=== PATIENT | female | born 1950 | race Caucasian/White ===

== ENCOUNTER 2019-01-10 12:01 | Emergency (ER) | payer MEDICARE ==
--- NOTE | 2019-01-10 12:41 | ERPHSYRPT ---
- History of Present Illness Time Seen by Provider: 01/10/19 12:31 Source: patient Exam Limitations: no limitations Patient Subjective Stated Complaint: pt reports she was seeeing her pain doctor today when they recorded her blood pressure at 190/100, pt reports she then went to Dr. Singh office and asked his nurse to take her blood pressure, which was found to be similar to the first recording. pt denies any pain but does state shes had a headache for about a week. pt states she does not record her blood pressures at home, states she does have a device but needs to get new batteries for it. Triage Nursing Assessment: pt is aox3, pupils perrl, afebrile, resps easy and non labored, radial pulses strong and equal, cap refill < 3 seconds, pt skin pink warm dry. no edema noted. Physician History: 68-year-old white female with history of migraines, high blood pressure, COPD, diabetes, hypothyroidism, fibromyalgia Patient arrives with complaint of a headache for one week ago she states she was in a pain senior project controls specialist which she sees for her back today was noted to have a high blood pressure she apparently then presented to her family doctor's office and was told to show up to the emergency room to evaluate her blood pressure patient states she's had a headache for a week she states she's had some pain in her posterior neck as well she states she fell a week ago and struck her head. She did not have loss of consciousness. Past medical history includes migraines, high blood pressure, asthma, bronchitis , COPD, diabetes type 2, hypothyroidism, arthritis, fibromyalgia, diverticulosis , GERD past surgical history includes low back surgery, hysterectomy . social history positive for tobacco use denies alcohol or illicit drug use. . Timing/Duration: today Severity: moderate Associated Symptoms: headaches, other (sshe was at elevated blood pressure), No nausea, No vomiting, No abdominal pain, No shortness of breath, No heartburn, No diaphoresis, No cough, No chills, No chest pain, No fever, No loss of appetite, No malaise, No rash, No syncope, No seizure, No weakness Allergies/Adverse Reactions: amoxicillin trihydrate [From Augmentin] Allergy (Verified 01/10/19 12:32) Diarrhea vomitting aspirin Allergy (Verified 01/10/19 12:32) Diarrhea buprenorphine [From Butrans] Allergy (Verified 06/11/19 12:32) Rash blisters levofloxacin [From Levaquin] Allergy (Verified 01/10/19 12:32) Diarrhea rash Penicillins Allergy (Verified 01/10/19 12:32) Rash potassium clavulanate [From Augmentin] Allergy (Verified 01/10/19 12:32) Diarrhea vomitting wool Allergy (Verified 01/10/19 12:32) Rash windex Adverse Reaction (Uncoded 01/10/19 12:32) lump on tongue Home Medications: Estrogens,Conjugated [Premarin] 0.625 mg PO DAILY 11/28/14 [History] Hydrochlorothiazide 50 mg PO DAILY 11/28/14 [History] Hydrocodone Bit/Acetaminophen [[place] 5-325 Tablet] 1 tab PO DAILY 11/28/14 [ History] Levothyroxine Sodium 50 Mcg [Synthroid 50 Mcg] 75 mcg PO DAILY 11/28/14 [ History] Metformin HCl 500 mg [Glucophage 500 MG] 500 mg PO TID 11/28/14 [History] Albuterol Sulfate [Proair Hfa] 8.5 gm IH QID 12/07/15 [History] Loratadine 10 mg PO DAILY 12/07/15 [History] Zolpidem Tartrate [Ambien] 5 mg PO HS 12/07/15 [History] Fluoxetine HCl [Prozac] 40 mg PO DAILY 09/09/17 [History] Glimepiride 4 mg [Amaryl 4 mg] 4 mg PO DAILY 09/09/17 [History] HydrALAzine HCL 25 MG TAB [Apresoline 25 MG TABLET] 25 mg PO BID 09/09/17 [History] Milnacipran HCl [Savella] 100 mg PO BID 09/09/17 [History] Nebivolol HCl [Bystolic] 20 mg PO DAILY 09/09/17 [History] Omeprazole 20 MG [Prilosec 20 mg] 20 mg PO DAILY 09/09/17 [History] Tizanidine HCl [Zanaflex] 2 mg PO HS 09/09/17 [History] Hx Tetanus, Diphtheria Vaccination/Date Given: No Hx Influenza Vaccination/Date Given: No Hx Pneumococcal Vaccination/Date Given: Yes Immunizations Up to Date: Yes - Review of Systems Constitutional: No Fever, No Chills Eyes: No Symptoms Ears, Nose, & Throat: No Symptoms Respiratory: No Cough, No Dyspnea Cardiac: No Chest Pain, No Edema, No Syncope Abdominal/Gastrointestinal: No Abdominal Pain, No Nausea, No Vomiting, No Diarrhea Genitourinary Symptoms: No Dysuria Musculoskeletal: Neck Pain, Injury (fell one week ago) Skin: No Rash Neurological: Headache, No Dizziness, No Focal Weakness, No Gait Changes, No Irritability, No Lethargy, No Paralysis, No Parasthesia, No Seizure, No Sensory Changes, No Speech Changes, No Tics, No Tremors, No Vertigo Psychological: No Symptoms Endocrine: No Symptoms All Other Systems: Reviewed and Negative - Past Medical History Pertinent Past Medical History: Yes Neurological History: Migraines ENT History: Cataracts Cardiac History: Hypertension Respiratory History: Asthma, Bronchitis, COPD, Sleep Apnea Endocrine Medical History: Diabetes Type II, Hypothyroidism Musculoskeletal History: Arthritis, Fibromyalgia GI Medical History: GERD, Hernia History: No Pertinent History Psycho-Social History: Depression Female Reproductive Disorders: No Pertinent History - Past Surgical History Past Surgical History: Yes Neuro Surgical History: Neurological Surgery Cardiac: No Pertinent History Respiratory: No Pertinent History Gastrointestinal: Cholecystectomy Genitourinary: No Pertinent History Musculoskeletal: No Pertinent History Female Surgical History: Hysterectomy Other Surgical History: low back surgery,feet and toes surgeryleft knee surgery, . T&A, 2 sinus surgeries. - Social History Smoking Status: Current every day smoker How long have you smoked: age 19 Exposure to second hand smoke: Yes Drug Use: none Patient Lives Alone: No - Female History Hx Now: No - Nursing Vital Signs Nursing Vital Signs: Initial Vital Signs Temperature 98.7 F 01/10/19 12:18 Pulse Rate 70 01/10/19 12:18 Respiratory Rate 20 01/10/19 12:18 Blood Pressure 190/112 01/10/19 12:18 O2 Sat by Pulse Oximetry 96 01/10/19 12:18 Pain Scale Pain Intensity 0 - Physical Exam General Appearance: mild distress, alert Eye Exam: PERRL/EOMI, eyes nml inspection Ears, Nose, Throat Exam: normal ENT inspection, TMs normal, pharynx normal, moist mucous membranes Neck Exam: normal inspection, non-tender, supple, full range of motion Respiratory Exam: normal breath sounds Cardiovascular Exam: regular rate/rhythm, normal heart sounds, normal peripheral pulses, capillary refill <2 sec Gastrointestinal/Abdomen Exam: soft, normal bowel sounds, No tenderness, No mass Back Exam: normal inspection, normal range of motion, No CVA tenderness, No vertebral tenderness Extremity Exam: normal inspection, normal range of motion, pelvis stable Neurologic Exam: alert, oriented x 3, cooperative, senior digital designer II-XII nml as tested, normal mood/affect, nml cerebellar function, nml station & gait, sensation nml, No motor deficits Skin Exam: normal color, warm, dry, No rash Lymphatic Exam: No adenopathy SpO2 Interpretation: normal (96%) SpO2: 96 - Course Nursing assessment & vital signs reviewed: Yes - CT Exams Cervical Spine CT Interpretation: Discussed w/radiologist (CT C-spine: Impression: 1. Cervical lordotic reversal, positional versus paraspinal spasm.negative acute fractures/subluxation. 2. Multilevel degenerative spondylosis) Head CT Interpretation: Discussed w/radiologist (CT head: Impression nonacute senile brain.) Ordered Tests: Active Orders 24 hr Category Date Time Status EKG-ER Only STAT Care 01/10/19 12:35 Active IV Insertion STAT Care 01/10/19 12:35 Active CERVICAL SPINE WO CONTRAST [CT] Stat Exams 01/10/19 12:36 Completed HEAD WITHOUT CONTRAST [CT] Stat Exams 01/10/19 12:36 Completed CBC W DIFF Stat Lab 01/10/19 12:51 Completed CMP Stat Lab 01/10/19 12:51 Completed Medication Summary Discontinued Medications Generic Name Dose Route Start Last Admin Trade Name Haydenq PRN Reason Stop Dose Admin Hydralazine HCl 10 mg 01/10/19 13:58 01/10/19 14:15 Apresoline 20 Mg/Ml Inj IV 01/10/19 13:59 10 mg STAT ONE Administration Hydralazine HCl Confirm 01/10/19 14:09 Apresoline 20 Mg/Ml Inj Administered 01/10/19 14:10 Dose 20 mg .ROUTE .STK-MED ONE Lab/Rad Data: Laboratory Result Diagrams 01/10/19 12:51 01/10/19 12:51 Laboratory Results 01/10/19 01/10/19 Range/Units 12:51 12:51 WBC 12.2 H (4.0-10.5) K/mm3 RBC 4.66 (4.1-5.4) M/mm3 Hgb 13.9 (12.0-16.0) gm/dl Hct 42.2 (35-47) % MCV 90.6 (78-100) fl MCH 29.8 (26-32) pg MCHC 32.9 (32-36) g/dl RDW 14.5 H (11.5-14.0) % Plt Count 200 (150-450) K/mm3 MPV 10.6 H (6-9.5) fl Gran % 63.0 (36.0-66.0) % Eos # (Auto) 0.22 (0-0.5) Absolute Lymphs (auto) 3.48 (1.0-4.6) Absolute Monos (auto) 0.75 (0.0-1.3) Lymphocytes % 28.5 (24.0-44.0) % Monocytes % 6.1 (0.0-12.0) % Eosinophils % 1.8 (0.00-5.0) % Basophils % 0.6 (0.0-0.4) % Absolute Granulocytes 7.69 H (1.4-6.9) Basophils # 0.07 (0-0.4) Sodium 138 (137-145) mmol/L Potassium 3.9 (3.5-5.1) mmol/L Chloride 101 (98-107) mmol/L Carbon Dioxide 27 (22-30) mmol/L Anion Gap 14.1 (5-15) MEQ/L BUN 15 (7-17) mg/dL Creatinine 0.66 (0.52-1.04) mg/dL Estimated GFR > 60.0 ML/MIN Glucose 176 H (74-106) mg/dL Calcium 9.9 (8.4-10.2) mg/dL Total Bilirubin 0.30 (0.2-1.3) mg/dL AST 57 H (14-36) U/L ALT 35 (0-35) U/L Alkaline Phosphatase 89 (38-126) U/L Serum Total Protein 7.6 (6.3-8.2) g/dL Albumin 3.9 (3.5-5.0) g/dL - Progress Progress: improved Progress Note: 01/10/19 14:38 68-year-old white female with history of migraines, hyper tension, asthma, bronchitis COPD, diabetes type 2, hypothyroidism, arthritis, fibromyalgia, diverticulosis, GERD, chronic back pain She arrives with complaint of a headache for one week after falling and hitting her head she did have some neck pain Patient was noted at her pain control physician's office this morning to have elevated blood pressure she apparently did not have this addressed with the pain senior project controls specialist however she presented to Dr. Singh's office and was recommended to come to the emergency room on arrival the emergency room patient with a blood pressure of 190 over 01/10/19 14:40 112. Patient otherwise what appeared to be stable she did complain of some neck pain and obtain a CT of her head and neck CT of the head is remarkable for nonacute senile brain. CT C-spine is remarkable for cervical lordotic reversal positional versus paraspinal spasm negative acute fractures or subluxation there is also multilevel degenerative spondylosis patient does have a chronic pain stimulator so EKG could not be obtained on this patient patient did have a regular pulse. Blood pressure initially was what it was noted to be in previous techs patient was CBC 12.2 hemoglobin 13.9 hematocrit 42.2 platelets 200. . patient with chemistry sodium 138 potassium 3.9 chloride 101 bicarbonate 27 BUN 15 creatinine 0.66 glucose 176 patient was given a Presalin 10 mg IV she initially went to a blood pressure 185/86 then to 178/75. I've discussed the patient's case with Dr. Armstrong. I recommended that I have the patient return home have her continue her hydroxyzine as prescribed in her by systolic as prescribed at home and to take her [place] as prescribed for pain. He is in agreement with this will go ahead and discharge patient patient appears to be stable. Impression 1 hypertension 2, headache. 3. Head contusion. . . - Departure Departure Disposition: Home Clinical Impression: Hypertension Qualifiers: Hypertension type: unspecified Qualified Code(s): I10 - Essential (primary) hypertension Headache Qualifiers: Headache type: unspecified Headache chronicity pattern: unspecified pattern Intractability: not intractable Qualified Code(s): R51 - Headache Head contusion Qualifiers: Encounter type: initial encounter Contusion of head detail: unspecified part of head Qualified Code(s): S00.93XA - Contusion of unspecified part of head, initial encounter Condition: Fair Critical Care Time: No Referrals: MORENA SINGH MD [Primary Care Provider] - Additional Instructions: Return home, rest. Take your medications especially hydralazine and diastolic as prescribed by your family Dr.. Pearson as prescribed by your pain senior project controls specialist. Followup with your family (contact your family doctor's office and schedule an appointment for the next day or so. Return for acute distress or for severe symptoms or for any problems.
[2019-01-10 12:53] LABS: BASOPHIL % 0.6 % (0.0-0.4); Basophil (Absolute #) 0.07 (0-0.4); Eosinophil % 1.8 % (0.00-5.0); Eosinophil (Absolute #) 0.22 (0-0.5); Granulocyte Absolute (ANC) 7.69 (1.4-6.9); Hematocrit 42.2 % (35-47); Hemoglobin 13.9 gm/dl (12.0-16.0); Lymphocyte (Absolute #) 3.48 (1.0-4.6); Lymphocytes % 28.5 % (24.0-44.0); Mean Cell Volume 90.6 fl (78-100); Mean Corpuscular Hemoglobin 29.8 pg (26-32); Mean Corpuscular Hgb Concent. 32.9 g/dl (32-36); Mean Platelet Volume 10.6 fl (6-9.5); Monocyte (Absolute #) 0.75 (0.0-1.3); Monocytes % 6.1 % (0.0-12.0); Platelet Count 200 K/mm3 (150-450); Red Blood Count 4.66 M/mm3 (4.1-5.4); Red Cell Distribution Width 14.5 % (11.5-14.0); White Blood Count 12.2 K/mm3 (4.0-10.5)
[2019-01-10 13:16] LABS: ALBUMIN 3.9 g/dL (3.5-5.0); ALKALINE PHOSPHATASE 89 U/L (38-126); ANION GAP 14.1 MEQ/L (5-15); BLOOD UREA NITROGEN 15 mg/dL (7-17); CHLORIDE 101 mmol/L (98-107); Calcium 9.9 mg/dL (8.4-10.2); Carbon Dioxide 27 mmol/L (22-30); Creatinine 1 0.66 mg/dL (0.52-1.04); Glucose 176 mg/dL (74-106); Potassium 3.9 mmol/L (3.5-5.1); SGOT/AST 57 U/L (14-36); SGPT/ALT 35 U/L (0-35); SODIUM 138 mmol/L (137-145); Total Protein 7.6 g/dL (6.3-8.2)
--- NOTE | 2019-01-10 13:30 | XRAY ---
Indication: Headache. Right head injury following fall 1 week ago. Multiple contiguous axial images obtained through the head without contrast. Comparison: October 27, 2009. Age-appropriate global atrophy and minimal periventricular degenerative micro-ischemia bilaterally. No acute intracranial hemorrhage, abnormal extra-axial fluid collection, or mass effect. Fourth ventricle is midline without hydrocephalus. Bony calvarium intact. Visualized paranasal sinuses and mastoid air cells are clear. Impression: Nonacute senile brain. CTDI 51.62
--- NOTE | 2019-01-10 13:33 | XRAY ---
Indication: Right neck pain following fall 1 week ago. Multiple contiguous axial images obtained through the cervical spine. Sagittal and coronal reformatted images obtained. Comparison: None. Normal variant nonunited posterior arch of C1. Axial images negative for acute fracture, suspicious bony lesions, or spinal canal stenosis. Mild/moderate multilevel degenerative endplate spurring, greatest C5-C7 levels. Also mild multilevel bilateral degenerative facet hypertrophy. Sagittal and axial reformatted images demonstrates mild reversal of the cervical lordosis, positional versus paraspinal spasm. Multilevel disc space loss. No acute compression fracture, subluxation, or jumped facet. Normal craniocervical junction. Visualized noncontrasted soft tissues including lung apices are unremarkable. Impression: 1. Cervical lordotic reversal, positional versus paraspinal spasm. Negative acute fracture/subluxation. 2. Multilevel degenerative spondylosis. CTDI 70.39
[2019-01-10] MEDS ORDERED: APRESOLINE 20 MG/ML INJ IV ONE (13:58)
[2019-01-10] MEDS ORDERED: APRESOLINE 20 MG/ML INJ ONE (14:09)
[2019-01-10 14:49] VITALS: BP 186/82; PULSE 70; O2SAT 94
== END 2019-01-10 15:14 | disposition home or self-care (01) ==
LOC: ED 12:01
DX: I10 Essential (primary) hypertension (principal); R51 Headache; S00.93XA Contusion of unspecified part of head, initial encounter; J44.9 Chronic obstructive pulmonary disease, unspecified; E11.9 Type 2 diabetes mellitus without complications; E03.9 Hypothyroidism, unspecified; M79.7 Fibromyalgia; Z79.899 Other long term (current) drug therapy
CPT/HCPCS: 36000; 36415; 70450; 72125; 80053; 85025; 93005; 96374; 99284; J0360

== ENCOUNTER 2020-01-10 08:33 | Day surgery (SDC) | payer MEDICARE ==
[2020-01-10] MEDS ORDERED: Xylocaine-Mpf 2% 5 Ml Vial IJ ONE (08:34)
[2020-01-10] MEDS ORDERED: Ketamine HCl 50 MG/ML ONE (10:08)
[2020-01-10] MEDS ORDERED: DIPRIVAN 200 MG/20 ML IV ONE (10:08)
[2020-01-10] MEDS ORDERED: Lactated Ringers 1,000 ML IV ONE (12:50)
--- NOTE | 2020-01-10 14:39 | XRAY ---
17 seconds fluoroscopy time in surgery for bilateral L3-S1 MBB.
--- NOTE | 2020-01-13 21:17 | XRAY ---
Indication: Bilateral L3-S1 MBB. Intraoperative fluoroscopy was provided for 17 seconds. 2 digital spot images submitted for interpretation demonstrate posterior spinal needle tips projected over the expected course of the left and right L3-S1 nerve roots. Prominent lateral osteophyte formation is seen. A portion of the metallic power pack is seen on the right edge of the images. Correlate with intraoperative findings/report.
== END 2020-01-10 10:35 | disposition home or self-care (01) ==
LOC: SDC-PAIN 08:33
PROVIDERS: ATTEND Psychiatry & Neurology Pain Medicine
DX: M47.816 Spondylosis without myelopathy or radiculopathy, lumbar region (principal); I10 Essential (primary) hypertension; J44.9 Chronic obstructive pulmonary disease, unspecified; E11.9 Type 2 diabetes mellitus without complications; E03.9 Hypothyroidism, unspecified; G47.30 Sleep apnea, unspecified; K21.9 Gastro-esophageal reflux disease without esophagitis; M79.7 Fibromyalgia; Z79.899 Other long term (current) drug therapy
CPT/HCPCS: 64483; 64484; 72020; 77002; 82962; 99100; J2704

== ENCOUNTER 2020-02-07 08:11 | Day surgery (SDC) | payer MEDICARE ==
[2020-02-07] MEDS ORDERED: Marcaine 0.5% SDV 10 ML IJ ONE (08:12)
[2020-02-07] MEDS ORDERED: DIPRIVAN 200 MG/20 ML IV ONE (09:31)
[2020-02-07] MEDS ORDERED: Ketamine HCl 50 MG/ML ONE (09:31)
[2020-02-07] MEDS ORDERED: TORAdol 30 mg Injection ONE (09:51)
--- NOTE | 2020-02-07 11:06 | XRAY ---
Indication: Right knee genicular nerve block. Intraoperative fluoroscopy was provided for 6 seconds. 2 digital spot images of the right knee submitted for interpretation demonstrates anterior needle tips projecting medial/lateral supracondylar and medial tibial plateau. Correlate with intraoperative findings/report.
--- NOTE | 2020-02-07 11:06 | XRAY ---
Indication: Left knee genicular nerve block. Intraoperative fluoroscopy was provided for 8 seconds. 2 digital spot images of the left knee submitted for interpretation demonstrates anterior needle tips projecting medial/lateral supracondylar and medial tibial plateau. Correlate with intraoperative findings/report.
[2020-02-07] MEDS ORDERED: Lactated Ringers 1,000 ML IV ONE (15:54)
--- NOTE | 2020-02-07 16:43 | XRAY ---
6 seconds of fluoroscopy was used in surgery for a right genicular nerve block.
--- NOTE | 2020-02-07 16:44 | XRAY ---
8 seconds of fluoroscopy was used in surgery for a left genicular nerve block.
== END 2020-02-07 10:02 | disposition home or self-care (01) ==
LOC: SDC-PAIN 08:11
PROVIDERS: ATTEND Psychiatry & Neurology Pain Medicine
DX: M17.0 Bilateral primary osteoarthritis of knee (principal); E11.9 Type 2 diabetes mellitus without complications; I10 Essential (primary) hypertension; J44.9 Chronic obstructive pulmonary disease, unspecified; E03.9 Hypothyroidism, unspecified; G47.30 Sleep apnea, unspecified; K21.9 Gastro-esophageal reflux disease without esophagitis; M79.7 Fibromyalgia; Z79.899 Other long term (current) drug therapy
CPT/HCPCS: 64454; 73560; 77002; 82962; J1885; J2704

== ENCOUNTER 2021-03-12 07:04 | Day surgery (SDC) | payer MEDICARE ==
[2021-03-12] MEDS ORDERED: Depo-Medrol 40 MG/ML IM ONE (07:05)
[2021-03-12] MEDS ORDERED: BUPIVACAINE 0.5% VIAL IJ ONE (07:05)
[2021-03-12] MEDS ORDERED: DIPRIVAN 200 MG/20 ML IV ONE (08:36)
--- NOTE | 2021-03-12 10:18 | XRAY ---
Indication: Bilateral L3-S1 MBB. Intraoperative fluoroscopy provided for 11 seconds. Single digital spot image submitted for interpretation demonstrates posterior needle tips projecting over the expected left and right L3-S1 nerve roots. Correlate with intraoperative findings/report. Incidental partially visualized right epidural stimulator device.
--- NOTE | 2021-03-12 12:43 | XRAY ---
11 seconds of fluoroscopy was used in surgery for a bilateral L3-S1 MBB.
[2021-03-12] MEDS ORDERED: Lactated Ringers 1,000 ML IV ONE (16:33)
== END 2021-03-12 09:02 | disposition home or self-care (01) ==
LOC: SDC-PAIN 07:04
PROVIDERS: ATTEND Psychiatry & Neurology Pain Medicine
DX: M47.816 Spondylosis without myelopathy or radiculopathy, lumbar region (principal); E11.9 Type 2 diabetes mellitus without complications; Z79.899 Other long term (current) drug therapy
CPT/HCPCS: 64493; 64494; 64495; 72020; 77002; 82947; J1030; J2704

== ENCOUNTER 2021-04-16 17:28 | Emergency (ER) | payer MEDICARE ==
[2021-04-16 17:50] VITALS: BP 205/72; PULSE 51; O2SAT 96
[2021-04-16 18:08] LABS: Appearance SLIGHTLY CLOUDY (CLEAR); Bilirubin NEGATIVE (NEGATIVE); Blood NEGATIVE Ery/ul (0-5); Epithelial Cells RARE /HPF (FEW); Glucose >=500 mg/dL (NEGATIVE); Hyaline Casts 0-2 /LPF (0-2); Ketones NEGATIVE (NEGATIVE); Leukocyte Esterase NEGATIVE (NEGATIVE); Mucus SLIGHT /HPF (NEGATIVE); Nitrite NEGATIVE (NEGATIVE); Protein,Urine Dip 100 (Negative); Specific Gravity 1.027 (1.005-1.025); Urobilinogen NEGATIVE mg/dL (0-1)
--- NOTE | 2021-04-16 18:28 | ERPHSYRPT ---
- History of Present Illness Time Seen by Provider: 04/16/21 17:50 Source: patient Exam Limitations: no limitations Patient Subjective Stated Complaint: Pelvic pain Triage Nursing Assessment: Patient ambulated back to ED and transferred self to bed. Patient A+O x3. Patient's skin pink, warm and dry. Patient complains of lower pelvic pain and flank pain 6/10 intermittent sharp burning pain. Patient complains of frequency and urgency. Patient also complains of abscess to vaginal area. Physician History: Patient is a 71-year-old female who presents with pelvic pain which started approximately 1 month ago she has had increasing nausea bloating urinary frequency urgency incontinence she also had some chills she has had bilateral CVA tenderness as well as some tenderness in the vaginal area. She is diabetic and has recurrent yeast infections which have not been treated with Diflucan in the past she also has pustular lesions in the inguinal area especially where she shaves. She is status post hysterectomy. Timing/Duration: week(s) (4) Activites at Onset: none Quality: burning, pressure, sharpness Onset Location: generalized flank, pelvic pain Pain Radiation: suprapubic, generalized flank Severity of Pain-Max: mild Severity of Pain-Current: mild Prior abdominal problems: similar symptoms Sexual intercourse history: non-contributory Modifying Factors: Improves With: urinating Associated Symptoms: fever, chills, nausea, loss of bladder control Allergies/Adverse Reactions: amoxicillin trihydrate [From Augmentin] Allergy (Verified 04/16/21 17:35) Diarrhea vomitting aspirin Allergy (Verified 04/16/21 17:35) Diarrhea buprenorphine [From Butrans] Allergy (Verified 04/16/21 17:35) Rash blisters levofloxacin [From Levaquin] Allergy (Verified 04/16/21 17:35) Diarrhea rash Penicillins Allergy (Verified 04/16/21 17:35) Rash potassium clavulanate [From Augmentin] Allergy (Verified 04/16/21 17:35) Diarrhea vomitting wool Allergy (Verified 04/16/21 17:35) Rash windex Adverse Reaction (Uncoded 04/16/21 17:35) lump on tongue Home Medications: Estrogens,Conjugated [Premarin] 0.625 mg PO DAILY 11/28/14 [History] Hydrochlorothiazide 50 mg PO DAILY 11/28/14 [History] Hydrocodone Bit/Acetaminophen [[place] 5-325 Tablet] 1 tab PO DAILY 11/28/14 [History] Levothyroxine Sodium 50 Mcg [Synthroid 50 Mcg] 75 mcg PO DAILY 11/28/14 [History] Metformin HCl 500 mg [Glucophage 500 MG] 500 mg PO TID 11/28/14 [History] Albuterol Sulfate [Proair Hfa] 8.5 gm IH QID 12/07/15 [History] Loratadine 10 mg PO DAILY 12/07/15 [History] Zolpidem Tartrate [Ambien] 5 mg PO HS 12/07/15 [History] Fluoxetine HCl [Prozac] 40 mg PO DAILY 09/09/17 [History] Glimepiride 4 mg [Amaryl 4 mg] 4 mg PO DAILY 09/09/17 [History] HydrALAzine HCL 25 MG TAB [Apresoline 25 MG TABLET] 25 mg PO BID 09/09/17 [History] Milnacipran HCl [Savella] 100 mg PO BID 09/09/17 [History] Nebivolol HCl [Bystolic] 20 mg PO DAILY 09/09/17 [History] Omeprazole 20 MG [Prilosec 20 mg] 20 mg PO DAILY 09/09/17 [History] Tizanidine HCl [Zanaflex] 2 mg PO HS 09/09/17 [History] Hx Tetanus, Diphtheria Vaccination/Date Given: No Hx Influenza Vaccination/Date Given: No Hx Pneumococcal Vaccination/Date Given: Yes (2020) Travel Risk - International Travel Have you traveled outside of the country in past 3 weeks: No - Coronavirus Screening Are you exhibiting any of the following symptoms?: No Close contact with a COVID-19 positive Pt in past 14-21 Days: No - Vaccine Status Have you recieved a Covid-19 vaccination: Yes Lead Generation Specialist: [email or web address] - Vaccination Dates Date of 2cond Vaccination (if applicable): september 2020 - Review of Systems Constitutional: Fever, Chills Eyes: No Symptoms Ears, Nose, & Throat: No Symptoms Respiratory: No Cough, No Dyspnea Cardiac: No Chest Pain, No Edema, No Syncope Abdominal/Gastrointestinal: Abdominal Pain, Nausea, Other (Abdominal bloating), No Vomiting, No Diarrhea Genitourinary Symptoms: Dysuria, Frequency, Incontinence, Urgency, Vaginal Discharge, Vaginal Itching Musculoskeletal: Back Pain, No Neck Pain Skin: No Rash Neurological: No Dizziness, No Focal Weakness, No Sensory Changes Psychological: No Symptoms Endocrine: No Symptoms All Other Systems: Reviewed and Negative - Past Medical History Pertinent Past Medical History: Yes Neurological History: Migraines ENT History: Cataracts Cardiac History: Hypertension Respiratory History: Asthma, Bronchitis, COPD, Sleep Apnea Endocrine Medical History: Diabetes Type II, Hypothyroidism Musculoskeletal History: Arthritis, Fibromyalgia GI Medical History: GERD, Hernia History: No Pertinent History Psycho-Social History: Depression Female Reproductive Disorders: No Pertinent History - Past Surgical History Past Surgical History: Yes Neuro Surgical History: Neurological Surgery Cardiac: No Pertinent History Respiratory: No Pertinent History Gastrointestinal: Cholecystectomy Genitourinary: No Pertinent History Musculoskeletal: No Pertinent History Female Surgical History: Hysterectomy Other Surgical History: low back surgery,feet and toes surgeryleft knee surgery,. T&A, 2 sinus surgeries. - Social History Smoking Status: Current every day smoker How long have you smoked: years Exposure to second hand smoke: No Drug Use: none Patient Lives Alone: Yes - Female History Hx Now: No - Nursing Vital Signs Nursing Vital Signs: Initial Vital Signs Temperature 99.5 F 04/16/21 17:45 Pulse Rate 51 L 04/16/21 17:45 Respiratory Rate 18 04/16/21 17:45 Blood Pressure 205/72 04/16/21 17:45 O2 Sat by Pulse Oximetry 96 04/16/21 17:45 Pain Scale Pain Intensity 6 - Physical Exam General Appearance: no apparent distress, mild distress, alert Eye Exam: PERRL/EOMI, eyes nml inspection Ears, Nose, Throat Exam: normal ENT inspection, TMs normal, pharynx normal, moist mucous membranes Neck Exam: normal inspection, non-tender, supple, full range of motion Respiratory Exam: normal breath sounds, lungs clear, No respiratory distress Cardiovascular Exam: regular rate/rhythm, normal heart sounds, normal peripheral pulses Gastrointestinal/Abdomen Exam: soft, No tenderness, No mass Pelvic Exam: other (Pustular abscesses x2 suprapubic area where there has been shaving. There is also obvious monilial infection.) Back Exam: normal inspection, normal range of motion, CVA tenderness, No vertebral tenderness Extremity Exam: normal inspection, normal range of motion, pelvis stable Neurologic Exam: alert, oriented x 3, cooperative, fuse maker II-XII nml as tested, normal mood/affect, sensation nml, No motor deficits Skin Exam: normal color, warm, dry Lymphatic Exam: No adenopathy SpO2 Interpretation: normal SpO2: 96 O2 Delivery: Room Air - Course Nursing assessment & vital signs reviewed: Yes Ordered Tests: Active Orders 24 hr Category Date Time Status UA W/RFX UR CULTURE Stat Lab 04/16/21 17:55 Completed Lab/Rad Data: Laboratory Results 04/16/21 Range/Units 17:55 Urine Color YELLOW (YELLOW) Urine Appearance SLIGHTLY CLOUDY (CLEAR) Urine pH 5.0 (5-6) Ur Specific [place] 1.027 (1.005-1.025) Urine Protein 100 (Negative) Urine Ketones NEGATIVE (NEGATIVE) Urine Blood NEGATIVE (0-5) Rios/ul Urine Nitrite NEGATIVE (NEGATIVE) Urine Bilirubin NEGATIVE (NEGATIVE) Urine Urobilinogen NEGATIVE (0-1) mg/dL Ur Leukocyte Esterase NEGATIVE (NEGATIVE) Urine WBC (Auto) NONE (0-5) /HPF Urine RBC (Auto) 3-5 (0-2) /HPF U Hyaline Cast (Auto) 0-2 (0-2) /LPF U Epithel Cells (Auto) RARE (FEW) /HPF Urine Mucus (Auto) SLIGHT (NEGATIVE) /HPF Urine Culture Reflexed NO (NO) Urine Glucose >=500 (NEGATIVE) mg/dL - Progress Progress: unchanged Air Movement: good Blood Culture(s) Obtained: No Antibiotics given: Yes - Departure Departure Disposition: Home Clinical Impression: Monilial vulvovaginitis, Folliculitis Condition: Stable Critical Care Time: No Referrals: MORENA SINGH MD [Primary Care Provider] - Instructions: Bacterial Folliculitis (DC), Vaginal Yeast Infection (DC) Prescriptions: Smz/Tmp Ds Tablet [Bactrim Ds Tablet] 1 tab PO Q12H 10 Days #20 tablet Fluconazole [Diflucan ] 150 mg PO DAILY 5 Days #5 tablet
== END 2021-04-16 18:47 | disposition home or self-care (01) ==
LOC: ED 17:28
DX: B37.3 Candidiasis of vulva and vagina (principal); R10.2 Pelvic and perineal pain; L73.9 Follicular disorder, unspecified; R11.0 Nausea; R35.0 Frequency of micturition; Z79.899 Other long term (current) drug therapy; Z20.822 Contact with and (suspected) exposure to COVID-19
CPT/HCPCS: 81001; 99283

== ENCOUNTER 2021-07-23 11:26 | Day surgery (SDC) | payer MEDICARE ==
[2021-07-23] MEDS ORDERED: Depo-Medrol 40 MG/ML IM ONE (11:27)
[2021-07-23] MEDS ORDERED: BUPIVACAINE 0.5% VIAL IJ ONE (11:27)
[2021-07-23] MEDS ORDERED: DIPRIVAN 200 MG/20 ML IV ONE (13:27)
[2021-07-23] MEDS ORDERED: Lactated Ringers 1,000 ML IV ONE (14:13)
--- NOTE | 2021-07-23 15:04 | XRAY ---
Indication: Bilateral L3-S1 MBB. Intraoperative fluoroscopy provided for 11 seconds. Single digital spot image submitted for interpretation demonstrate posterior needle tips projecting over the expected left and right L3-S1 nerve roots. Correlate with intraoperative findings/report. Incidental partially visualized right epidural stimulator device/leads.
--- NOTE | 2021-07-23 15:11 | XRAY ---
11 seconds of fluoroscopy was used in surgery for a bilateral L3-S1 MBB.
== END 2021-07-23 14:02 | disposition home or self-care (01) ==
LOC: SDC-PAIN 11:26
PROVIDERS: ATTEND Psychiatry & Neurology Pain Medicine
DX: M47.816 Spondylosis without myelopathy or radiculopathy, lumbar region (principal); I10 Essential (primary) hypertension; J44.9 Chronic obstructive pulmonary disease, unspecified; E11.9 Type 2 diabetes mellitus without complications; E03.9 Hypothyroidism, unspecified; Z79.899 Other long term (current) drug therapy
CPT/HCPCS: 64493; 64494; 64495; 72020; 77002; 82947; J1030; J2704

== ENCOUNTER 2021-10-01 10:54 | Day surgery (SDC) | payer MEDICARE ==
[2021-10-01] MEDS ORDERED: Xylocaine 1% Vial 30 ML PF IJ ONE (10:55)
[2021-10-01] MEDS ORDERED: BUPIVACAINE 0.5% VIAL IJ ONE (10:55)
[2021-10-01] MEDS ORDERED: Depo-Medrol 40 MG/ML IM ONE (10:55)
[2021-10-01] MEDS ORDERED: DIPRIVAN 200 MG/20 ML IV ONE (12:45)
[2021-10-01] MEDS ORDERED: Lactated Ringers 1,000 ML IV ONE (13:15)
--- NOTE | 2021-10-01 14:02 | XRAY ---
Indication: Right L3-S1 RFA. Intraoperative fluoroscopy provided for 22 seconds. 4 digital spot image submitted for interpretation demonstrates posterior needle tips projecting over the expected right L3-S1 nerve roots. Correlate with intraoperative findings/report. Incidental partially visualized right lower back epidural stimulator device/leads.
--- NOTE | 2021-10-01 14:39 | XRAY ---
22 seconds fluoroscopy time in surgery for right L3-S1 RFA.
== END 2021-10-01 13:18 | disposition home or self-care (01) ==
LOC: SDC-PAIN 10:54
PROVIDERS: ATTEND Psychiatry & Neurology Pain Medicine
DX: M47.816 Spondylosis without myelopathy or radiculopathy, lumbar region (principal); E11.9 Type 2 diabetes mellitus without complications; Z79.899 Other long term (current) drug therapy
CPT/HCPCS: 64635; 64636; 72100; 77002; 82947; 99100; J1030; J2001; J2704

== ENCOUNTER 2021-10-08 08:56 | Day surgery (SDC) | payer MEDICARE ==
[2021-10-08] MEDS ORDERED: Xylocaine 1% Vial 30 ML PF IJ ONE (10:35)
[2021-10-08] MEDS ORDERED: Depo-Medrol 40 MG/ML IM ONE (10:35)
[2021-10-08] MEDS ORDERED: BUPIVACAINE 0.5% VIAL IJ ONE (10:35)
[2021-10-08] MEDS ORDERED: DIPRIVAN 200 MG/20 ML IV ONE (11:06)
[2021-10-08] MEDS ORDERED: Lactated Ringers 1,000 ML IV ONE (11:16)
--- NOTE | 2021-10-08 12:44 | XRAY ---
Indication: Left L3-S1 RFA. Intraoperative fluoroscopy provided for 40 seconds. 4 digital spot image submitted for interpretation demonstrates posterior needle tips projecting over the expected left L3-S1 nerve roots. Correlate with intraoperative findings/report. Incidental partially visualized right lower back epidural stimulator device/leads.
--- NOTE | 2021-10-08 12:47 | XRAY ---
40 seconds fluoroscopy time in surgery for left L3-S1 RFA.
== END 2021-10-08 11:40 | disposition home or self-care (01) ==
LOC: SDC-PAIN 08:56
PROVIDERS: ATTEND Psychiatry & Neurology Pain Medicine
DX: M47.816 Spondylosis without myelopathy or radiculopathy, lumbar region (principal); E11.9 Type 2 diabetes mellitus without complications; Z79.899 Other long term (current) drug therapy
CPT/HCPCS: 64635; 64636; 72100; 77002; 82947; 99100; J1030; J2001; J2704

== ENCOUNTER 2021-11-19 10:23 | Day surgery (SDC) | payer MEDICARE ==
[2021-11-19] MEDS ORDERED: Decadron 4 MG INJ IV ONE (10:24)
[2021-11-19] MEDS ORDERED: Xylocaine 1% Vial 30 ML PF IJ ONE (10:24)
[2021-11-19] MEDS ORDERED: DIPRIVAN 200 MG/20 ML IV ONE ×2 (12:09→12:31)
[2021-11-19] MEDS ORDERED: Lactated Ringers 1,000 ML IV ONE (12:38)
--- NOTE | 2021-11-19 12:58 | XRAY ---
Indication: Bilateral piriformis muscle injections. Intraoperative fluoroscopy provided for 40 seconds. 3 digital spot image submitted for interpretation demonstrates posterior needle tip projecting over the expected left and right piriformis muscles. Small amount of contrast injected for needle tip placement. Correlate with intraoperative findings/report.
--- NOTE | 2021-11-19 13:57 | XRAY ---
40 seconds fluoroscopy time in surgery for bilateral piriformis muscle injections.
== END 2021-11-19 12:45 | disposition home or self-care (01) ==
LOC: SDC-PAIN 10:23
PROVIDERS: ATTEND Psychiatry & Neurology Pain Medicine
DX: M79.18 Myalgia, other site (principal); E11.9 Type 2 diabetes mellitus without complications; I10 Essential (primary) hypertension; Z79.899 Other long term (current) drug therapy
CPT/HCPCS: 20552; 72202; 77002; 82947; 99100; J1100; J2001; J2704; Q9966

== ENCOUNTER 2022-01-07 12:43 | Day surgery (SDC) | payer MEDICARE ==
[2022-01-07] MEDS ORDERED: Decadron 4 MG INJ IV ONE (12:44)
[2022-01-07] MEDS ORDERED: XYLOCAINE-MPF 1% 5ML SDV IJ ONE (12:44)
--- NOTE | 2022-01-07 15:07 | XRAY ---
Indication: Bilateral piriformis muscle injections. Intraoperative fluoroscopy provided for 29 seconds. 2 digital spot image submitted for interpretation demonstrates posterior needle tip projecting over the left and right piriformis muscles. Small amount of contrast was injected for both needle tip placement. Correlate with intraoperative findings/report.
--- NOTE | 2022-01-07 16:01 | XRAY ---
29 seconds of fluoroscopy was used in surgery for bilateral piriformis injections.
== END 2022-01-07 14:25 | disposition home or self-care (01) ==
LOC: SDC-PAIN 12:43
PROVIDERS: ATTEND Psychiatry & Neurology Pain Medicine
DX: M79.18 Myalgia, other site (principal); E11.9 Type 2 diabetes mellitus without complications; Z79.899 Other long term (current) drug therapy
CPT/HCPCS: 20552; 72170; 77002; 82947; J1100; Q9966

== ENCOUNTER 2022-02-04 11:39 | Day surgery (SDC) | payer MEDICARE ==
[2022-02-04] MEDS ORDERED: Depo-Medrol 40 MG/ML IM ONE (11:40)
[2022-02-04] MEDS ORDERED: Marcaine Mpf 0.5% Vial 30 Ml IJ ONE (11:40)
[2022-02-04] MEDS ORDERED: BENADRYL 50 MG/ML ONE (12:47)
[2022-02-04] MEDS ORDERED: DIPRIVAN 200 MG/20 ML IV ONE (13:23)
--- NOTE | 2022-02-04 14:16 | XRAY ---
Indication: Bilateral SI joint injection. Intraoperative fluoroscopy provided for 17 seconds. 4 digital spot images submitted for interpretation demonstrates posterior needle tip projecting over the inferior left and right SI joint. Correlate with intraoperative findings/report.
[2022-02-04] MEDS ORDERED: Lactated Ringers 1,000 ML IV ONE (14:23)
--- NOTE | 2022-02-04 14:55 | XRAY ---
17 seconds fluoroscopy time in surgery for bilateral SI joint injections.
== END 2022-02-04 13:43 | disposition home or self-care (01) ==
LOC: SDC-PAIN 11:39
PROVIDERS: ATTEND Psychiatry & Neurology Pain Medicine
DX: M46.1 Sacroiliitis, not elsewhere classified (principal); E11.9 Type 2 diabetes mellitus without complications; Z79.899 Other long term (current) drug therapy
CPT/HCPCS: 27096; 72202; 77002; 82947; G0260; 99100; J1030; J1200; J2704

== ENCOUNTER 2022-03-25 11:20 | Day surgery (SDC) | payer MEDICARE ==
[2022-03-25] MEDS ORDERED: Depo-Medrol 40 MG/ML IM ONE (11:21)
[2022-03-25] MEDS ORDERED: Sodium Chloride 0.9(Preservative Free) 10 ML IJ ONE (11:21)
[2022-03-25] MEDS ORDERED: DIPRIVAN 200 MG/20 ML IV ONE (12:21)
[2022-03-25] MEDS ORDERED: Lactated Ringers 1,000 ML IV ONE (13:08)
--- NOTE | 2022-03-25 17:35 | XRAY ---
Indication: Left L3-L5 transforaminal PALMER. Intraoperative fluoroscopy provided for 42 seconds. 5 digital spot image submitted for interpretation demonstrates posterior needle tips projecting over the expected left L3 and L4 nerve roots. Small amount of contrast injected for needle tip placement. Correlate with intraoperative findings/report. Incidental partially visualized epidural stimulator device/leads.
--- NOTE | 2022-03-25 17:46 | XRAY ---
42 seconds fluoroscopy time in surgery for left L3-L5 transforaminal PALMER.
== END 2022-03-25 12:50 | disposition home or self-care (01) ==
LOC: SDC-PAIN 11:20
PROVIDERS: ATTEND Psychiatry & Neurology Pain Medicine
DX: M54.16 Radiculopathy, lumbar region (principal); E11.9 Type 2 diabetes mellitus without complications; Z79.899 Other long term (current) drug therapy
CPT/HCPCS: 64483; 64484; 72100; 77003; 82947; J1030; J2704; Q9966

== ENCOUNTER 2023-02-17 14:00 | Day surgery (SDC) | payer MEDICARE ==
[2023-02-17] MEDS ORDERED: Depo-Medrol 40 MG/ML IM ONE (14:01)
[2023-02-17] MEDS ORDERED: LIDOCAINE HCL 1% 50 MG/5 ML VL PF IJ ONE (14:01)
[2023-02-17] MEDS ORDERED: SYNVISC 16 MG/2 ML SYRINGE IU ONE (14:01)
--- NOTE | 2023-02-17 16:42 | XRAY ---
Indication: Right knee injection. Intraoperative fluoroscopy provided for 9 seconds. Single digital spot image submitted for interpretation demonstrates needle tip projecting over the right femur intercondylar notch. Small amount of contrast injected for needle tip placement. Correlate with intraoperative findings/report.
--- NOTE | 2023-02-17 16:42 | XRAY ---
Indication: Left knee injection. Intraoperative fluoroscopy provided for 6 seconds. Single digital spot image submitted for interpretation demonstrates needle tip projecting over the left femur intercondylar notch. Small amount of contrast injected for needle tip placement. Correlate with intraoperative findings/report.
--- NOTE | 2023-02-17 16:50 | XRAY ---
9 seconds of fluoroscopy was used in surgery for a right intra-articular knee injection.
--- NOTE | 2023-02-17 16:50 | XRAY ---
6 seconds of fluoroscopy was used in surgery for a left intra-articular knee injection.
== END 2023-02-17 15:50 | disposition home or self-care (01) ==
LOC: SDC-PAIN 14:00
PROVIDERS: ATTEND Psychiatry & Neurology Pain Medicine
DX: M17.0 Bilateral primary osteoarthritis of knee (principal); E11.9 Type 2 diabetes mellitus without complications; Z79.899 Other long term (current) drug therapy
CPT/HCPCS: 20610; 73560; 77002; 82947; J1030; J2001; J7325; Q9966

== ENCOUNTER 2023-02-24 15:58 | Day surgery (SDC) | payer MEDICARE ==
[2023-02-24] MEDS ORDERED: LIDOCAINE HCL 1% 50 MG/5 ML VL PF IJ ONE (15:59)
[2023-02-24] MEDS ORDERED: SYNVISC 16 MG/2 ML SYRINGE IU ONE (15:59)
--- NOTE | 2023-02-24 20:29 | XRAY ---
Indication: Right knee injection. Intraoperative fluoroscopy provided for 7 seconds. Single digital spot image submitted for interpretation demonstrates needle tip projecting over right femur intercondylar notch. Small amount of contrast injected for needle tip placement. Correlate with intraoperative findings/report.
--- NOTE | 2023-02-24 20:30 | XRAY ---
Indication: Left knee injection. Intraoperative fluoroscopy provided for 7 seconds. Single digital spot image submitted for interpretation demonstrates needle tip projecting over left femur intercondylar notch. Small amount of contrast injected for needle tip placement. Correlate with intraoperative findings/report.
--- NOTE | 2023-02-25 08:48 | XRAY ---
7 seconds of fluoroscopy was used in surgery for a right intra-articular knee injection.
--- NOTE | 2023-02-25 08:48 | XRAY ---
7 seconds of fluoroscopy was used in surgery for a left intra-articular knee injection.
== END 2023-02-24 18:25 | disposition home or self-care (01) ==
LOC: SDC-PAIN 15:58
PROVIDERS: ATTEND Psychiatry & Neurology Pain Medicine
DX: M17.0 Bilateral primary osteoarthritis of knee (principal); E11.9 Type 2 diabetes mellitus without complications; Z79.899 Other long term (current) drug therapy
CPT/HCPCS: 20610; 73560; 77002; 82947; J2001; J7325; Q9966

== ENCOUNTER 2023-03-03 15:08 | Day surgery (SDC) | payer MEDICARE ==
[2023-03-03] MEDS ORDERED: LIDOCAINE HCL 1% 50 MG/5 ML VL PF IJ ONE (15:09)
[2023-03-03] MEDS ORDERED: SYNVISC 16 MG/2 ML SYRINGE IU ONE (15:09)
[2023-03-03] MEDS ORDERED: Lactated Ringers 1,000 ML IV ONE (16:57)
--- NOTE | 2023-03-03 20:09 | XRAY ---
Indication: Right knee injection. Intraoperative fluoroscopy provided for 7 seconds. Single digital spot image submitted for interpretation demonstrates needle tip projecting over the right femur intercondylar notch. Small amount of contrast injected for needle tip placement. Correlate with intraoperative findings/report.
--- NOTE | 2023-03-04 11:43 | XRAY ---
7 seconds of fluoroscopy was used in surgery for a right knee intra-articular injection.
--- NOTE | 2023-03-04 11:43 | XRAY ---
6 seconds of fluoroscopy was used in surgery for a left knee intra-articular injection.
== END 2023-03-03 17:46 | disposition home or self-care (01) ==
LOC: SDC-PAIN 15:08
PROVIDERS: ATTEND Psychiatry & Neurology Pain Medicine
DX: M17.0 Bilateral primary osteoarthritis of knee (principal); E11.9 Type 2 diabetes mellitus without complications; Z79.899 Other long term (current) drug therapy
CPT/HCPCS: 20610; 73560; 77002; 82947; J2001; J7325; Q9966